=== PATIENT | male | born 1930 | race Caucasian/White ===

== ENCOUNTER 2017-08-13 08:35 | Day surgery (SDC) | payer MEDICARE, OTHER ==
[~2017-08-13] VITALS: Ht 167.6 cm; Wt 85.3 kg
[~2017-08-13 08:35] MED LIST: ASPIR-LOW81 MG PO; ATORVASTATIN CA80 MG PO; TOPROL XL50 MG PO
== END 2017-08-13 11:15 | disposition home or self-care (01) ==
LOC: DSVR 08:35 → OPS 08:35 → DS 10:00 → OPS 11:15
PROVIDERS: Ophthalmology
PROC: 08RJ3JZ Replacement of Right Lens with Synthetic Substitute, Percutaneous Approach (ICD-10-PCS; principal; 2017-08-13 10:00)
DX: H25.813 Combined forms of age-related cataract, bilateral (principal); E78.00 Pure hypercholesterolemia, unspecified; M19.90 Unspecified osteoarthritis, unspecified site; I10 Essential (primary) hypertension; E78.5 Hyperlipidemia, unspecified; Z79.82 Long term (current) use of aspirin; Z79.899 Other long term (current) drug therapy; Z95.1 Presence of aortocoronary bypass graft
CPT/HCPCS: J2250